=== PATIENT | female | born 1995 | race Caucasian/White ===

== ENCOUNTER → 2016-11-09 | Outpatient (REF) | payer OTHER | END | disposition home or self-care (01) | LOC: M LAB REF 10:12 | PROVIDERS: ATTEND Physician Assistant | DX: J06.9 Acute upper respiratory infection, unspecified (principal) ==

== ENCOUNTER 2017-09-23 18:07 | Emergency (ER) | payer OTHER ==
[~2017-09-23] VITALS: Ht 147.3 cm; Wt 64.7 kg
[2017-09-23 18:08] VITALS: BP 138/85
[2017-09-23] MEDS ORDERED: CITA20TA4 (18:17)
--- NOTE | 2017-09-24 08:55 | REP ---
REASON: Pain after trauma. COMPARISON: None. FINDINGS: The joint spaces are symmetric and relatively well maintained. There is no evidence of acute fracture or destructive osseous lesion. IMPRESSION: Negative hand. Signed by Arthur Velazquez DO 09/24/2017 08:57 A
== END 2017-09-23 20:08 | disposition home or self-care (01) ==
LOC: M ED 18:07
DX: S60.222A Contusion of left hand, initial encounter (principal); X58.XXXA Exposure to other specified factors, initial encounter; Y92.59 Other trade areas as the place of occurrence of the external cause; Y93.89 Activity, other specified; Y99.0 Civilian activity done for income or pay; F33.9 Major depressive disorder, recurrent, unspecified; Z79.899 Other long term (current) drug therapy

== ENCOUNTER → 2019-04-12 | Outpatient (REF) | payer OTHER ==
[~2019-04-12] MED LIST: CITA20TA6
== END ==
LOC: M SFHCPLAZ 13:38
PROVIDERS: ATTEND Physician Assistant Medical
DX: J30.2 Other seasonal allergic rhinitis (principal)

== ENCOUNTER → 2019-05-10 | Outpatient (CLI) | payer OTHER ==
[2019-05-15 10:39] LABS: D001-IgE D pteronyssinus 8.38 kU/L (Class IV); G002-IgE Bermuda Grass 7.15 kU/L (Class IV); M001-IgE Penicillium chrysogen < 0.10 kU/L (Class 0); M002 IgE Cladosporium herbaru < 0.10 kU/L (Class 0); M003 IgE Aspergillus fumigatu < 0.10 kU/L (Class 0); M006-IgE Alternaria alternata < 0.10 kU/L (Class 0); T001-IgE Maple/Box Elder 0.13 kU/L (Class 0/I); T003-IgE Common Silver Birch < 0.10 kU/L (Class 0); T006-IgE Cedar, Mountain < 0.10 kU/L (Class 0); T007-IgE Oak, White < 0.10 kU/L (Class 0); T008-IgE Elm, American < 0.10 kU/L (Class 0); T015-IgE Ash, White < 0.10 kU/L (Class 0); T041-IgE Hickory, White < 0.10 kU/L (Class 0); T070-IgE White Mulberry < 0.10 kU/L (Class 0); W001-IgE Ragweed, Short 4.76 kU/L (Class IV); W009-IgE Plantain, English 0.15 kU/L (Class 0/I); W014-IgE Pigweed, Rough < 0.10 kU/L (Class 0); W018-IgE Sheep Sorrel 0.12 kU/L (Class 0/I)
== END ==
LOC: M LAB 10:14
PROVIDERS: ATTEND Physician Assistant Medical
DX: J30.2 Other seasonal allergic rhinitis (principal)

== ENCOUNTER → 2019-07-13 | Outpatient (REF) | payer OTHER ==
[2019-07-13 16:03] LABS: APPEARANCE, URINE HAZY (CLEAR); BACTERIA, URINE AUTO 2+ (NEGATIVE); BILIRUBIN, URINE AUTO NEGATIVE (NEGATIVE); BLOOD, URINE BLOOD 3+ (NEGATIVE); COLOR, URINE YELLOW (YELLOW); GLUCOSE, URINE (UA) AUTO NEGATIVE (NEGATIVE); KETONE, URINE AUTO NEGATIVE (NEGATIVE); LEUKOCYTE ESTERASE, URINE AUTO 3+ (NEGATIVE); NITRITE, URINE AUTO NEGATIVE (NEGATIVE); PROTEIN, URINE AUTO NEGATIVE (NEGATIVE); RBC, URINE AUTO 2 /HPF (0-3); SPECIFIC GRAVITY URINE AUTO 1.002 (1.002-1.035); SQUAMOUS EPITHELIAL CELL UR AU 1 /HPF (0-6); UROBILINOGEN, URINE AUTO 0.2 mg/dL (0.0-2.0); WBC, URINE AUTO 58 /HPF (0-3)
== END ==
LOC: M LAB REF 15:53
PROVIDERS: ATTEND Physician Assistant Medical
DX: N39.0 Urinary tract infection, site not specified (principal)

== ENCOUNTER → 2020-08-18 | Outpatient (REF) | payer OTHER ==
[2020-08-18 16:20] LABS: ALBUMIN 3.7 GM/DL (3.2-5.2); ALT/SGPT 33 U/L (12-78); BILIRUBIN,TOTAL 0.3 MG/DL (0.2-1.0); BLOOD UREA NITROGEN 10 MG/DL (7-18); CALCIUM LEVEL 9.3 MG/DL (8.5-10.1); CARBON DIOXIDE LEVEL 28 MEQ/L (21-32); CHLORIDE LEVEL 104 MEQ/L (98-107); CREATININE FOR GFR 0.83 MG/DL (0.55-1.30); GLOMERULAR FILTRATION RATE > 60.0 (>60); GLUCOSE, FASTING 86 MG/DL (70-100); POTASSIUM SERUM 4.4 MEQ/L (3.5-5.1); SODIUM LEVEL 138 MEQ/L (136-145); TOTAL PROTEIN 7.6 GM/DL (6.4-8.2)
[2020-08-20 16:08] LABS: INSULIN LEVEL 35.3 uIU/mL (2.6-24.9); TESTOSTERONE FREE (DIRECT) 1.3 pg/mL (0.0-4.2)
== END ==
LOC: M SFHCPLAZ 12:10
PROVIDERS: ATTEND Physician Assistant Medical
DX: N91.2 Amenorrhea, unspecified (principal); E66.9 Obesity, unspecified; E28.2 Polycystic ovarian syndrome

== ENCOUNTER → 2020-09-18 | Outpatient (REF) | payer OTHER | LOC: M LAB REF 12:19 | PROVIDERS: ATTEND Advanced Practice Midwife | DX: Z32.01 Encounter for pregnancy test, result positive (principal) ==

== ENCOUNTER → 2020-09-21 | Outpatient (CLI) | payer OTHER ==
[2020-09-21 12:13] LABS: HEMATOCRIT 38.8 % (36.0-47.0); HEMOGLOBIN 12.6 g/dl (12.0-15.5); MEAN CORPUSCULAR HEMOGLOBIN 28.1 pg (27.0-33.0); MEAN CORPUSCULAR HGB CONC 32.5 g/dl (32.0-36.5); MEAN CORPUSCULAR VOLUME 86.6 fl (80.0-96.0); PLATELET COUNT, AUTOMATED 348 10^3/uL (150-450); RED BLOOD COUNT 4.48 10^6/uL (4.00-5.40)
[2020-09-21 13:21] LABS: HCG, SERUM QUANTITATIVE 68394 MIU/ML; HEPATITIS B SURFACE ANTIGEN NEGATIVE (NEGATIVE); HEPATITIS C VIRUS ABY INDEX < 0.0 INDEX (<0.8); HIV 1&2 SCREEN CENTAUR NEGATIVE (NEGATIVE)
== END ==
LOC: M WUC 09:29
PROVIDERS: ATTEND Advanced Practice Midwife
DX: Z32.01 Encounter for pregnancy test, result positive (principal)

== ENCOUNTER → 2020-10-22 | Outpatient (REF) | payer OTHER | LOC: M LAB REF 12:11 | PROVIDERS: ATTEND Advanced Practice Midwife | DX: Z34.81 Encounter for supervision of other normal pregnancy, first trimester (principal) ==

== ENCOUNTER → 2020-11-30 | Outpatient (REF) | payer OTHER | LOC: M LAB REF 11:56 | PROVIDERS: ATTEND Advanced Practice Midwife | DX: Z34.81 Encounter for supervision of other normal pregnancy, first trimester (principal) ==

== ENCOUNTER → 2021-02-08 | Outpatient (CLI) | payer OTHER ==
[2021-02-08 13:16] LABS: HEMATOCRIT 34.8 % (36.0-47.0); HEMOGLOBIN 11.1 g/dl (12.0-15.5); MEAN CORPUSCULAR HEMOGLOBIN 28.4 pg (27.0-33.0); MEAN CORPUSCULAR HGB CONC 31.9 g/dl (32.0-36.5); PLATELET COUNT, AUTOMATED 294 10^3/uL (150-450); RED BLOOD COUNT 3.91 10^6/uL (4.00-5.40); WHITE BLOOD COUNT 11.3 10^3/uL (4.0-10.0)
== END ==
LOC: M WUC 09:07
PROVIDERS: ATTEND Advanced Practice Midwife
DX: Z36.89 Encounter for other specified antenatal screening (principal); Z34.82 Encounter for supervision of other normal pregnancy, second trimester

== ENCOUNTER → 2021-02-12 | Outpatient (CLI) | payer OTHER | LOC: M LAB 08:32 | PROVIDERS: ATTEND Advanced Practice Midwife | DX: R73.02 Impaired glucose tolerance (oral) (principal) ==

== ENCOUNTER → 2021-02-25 | Outpatient (REF) | payer OTHER | LOC: M LAB REF 12:33 | PROVIDERS: ATTEND Advanced Practice Midwife | DX: N76.0 Acute vaginitis (principal) ==

== ENCOUNTER → 2021-02-25 | Outpatient (REF) | payer OTHER ==
[~2021-02-25] MED LIST changes: +PRENTAB9 PO
== END ==
LOC: M LAB REF 12:20
PROVIDERS: ATTEND Advanced Practice Midwife
DX: Z34.83 Encounter for supervision of other normal pregnancy, third trimester (principal)

== ENCOUNTER → 2021-03-01 | Outpatient (REF) | payer OTHER ==
[~2021-03-01] MED LIST changes: -PRENTAB9 PO
[2021-03-01 12:58] LABS: ALT/SGPT 21 U/L (12-78); BILIRUBIN,TOTAL 0.2 MG/DL (0.2-1.0); CREATININE FOR GFR 0.47 MG/DL (0.55-1.30); GLOMERULAR FILTRATION RATE > 60.0 (>60); LDH LACTATE DEHYDROGENASE 185 U/L (84-246); URIC ACID 3.1 MG/DL (2.6-6.0)
== END ==
LOC: M LAB REF 12:07
PROVIDERS: ATTEND Advanced Practice Midwife
DX: Z34.83 Encounter for supervision of other normal pregnancy, third trimester (principal)

== ENCOUNTER → 2021-03-02 | Outpatient (REF) | payer OTHER ==
[2021-03-02 13:55] LABS: TOTAL PROTEIN 24 HOUR URINE 596.7 MG/24HR (50-150); URINE TOTAL PROTEIN 23.4 MG/DL (0-12)
== END ==
LOC: M LAB REF 12:44
PROVIDERS: ATTEND Advanced Practice Midwife
DX: Z34.83 Encounter for supervision of other normal pregnancy, third trimester (principal)

== ENCOUNTER → 2021-03-09 | Outpatient (REF) | payer OTHER ==
[2021-03-09 18:06] LABS: CREATININE,RANDOM URINE 86.1 MG/DL; TOTAL PROTEIN,RANDOM URINE 25.5 MG/DL (0.0-12.0)
[2021-03-09 18:36] LABS: ALT/SGPT 20 U/L (12-78); BILIRUBIN,TOTAL 0.2 MG/DL (0.2-1.0); CREATININE FOR GFR 0.55 MG/DL (0.55-1.30); GLOMERULAR FILTRATION RATE > 60.0 (>60); LDH LACTATE DEHYDROGENASE 195 U/L (84-246); URIC ACID 3.2 MG/DL (2.6-6.0)
== END ==
LOC: M LAB REF 16:21
PROVIDERS: ATTEND Obstetrics & Gynecology
DX: Z34.83 Encounter for supervision of other normal pregnancy, third trimester (principal)

== ENCOUNTER 2021-03-13 13:24 | Outpatient (CLI) | payer OTHER ==
[~2021-03-13] VITALS: Ht 149.9 cm; Wt 104.9 kg
[2021-03-13] VITALS (9 sets, daily range): BP systolic 120–149; BP diastolic 57–74
[2021-03-13] MEDS ORDERED: PRENTAB9 PO (14:02)
[2021-03-13 15:17] LABS: HEMATOCRIT 33.8 % (36.0-47.0); HEMOGLOBIN 10.9 g/dl (12.0-15.5); MEAN CORPUSCULAR HEMOGLOBIN 27.4 pg (27.0-33.0); MEAN CORPUSCULAR HGB CONC 32.2 g/dl (32.0-36.5); MEAN CORPUSCULAR VOLUME 84.9 fl (80.0-96.0); PLATELET COUNT, AUTOMATED 327 10^3/uL (150-450); RED BLOOD COUNT 3.98 10^6/uL (4.00-5.40)
[2021-03-13 15:31] LABS: TOTAL PROTEIN,RANDOM URINE 35.2 MG/DL (0.0-12.0)
[2021-03-13 15:45] LABS: ALBUMIN 2.5 GM/DL (3.2-5.2); ALT/SGPT 21 U/L (12-78); BILIRUBIN,TOTAL 0.2 MG/DL (0.2-1.0); BLOOD UREA NITROGEN 6 MG/DL (7-18); CALCIUM LEVEL 8.3 MG/DL (8.5-10.1); CARBON DIOXIDE LEVEL 22 MEQ/L (21-32); CHLORIDE LEVEL 109 MEQ/L (98-107); CREATININE FOR GFR 0.56 MG/DL (0.55-1.30); GLOMERULAR FILTRATION RATE > 60.0 (>60); GLUCOSE, FASTING 97 MG/DL (70-100); LDH LACTATE DEHYDROGENASE 205 U/L (84-246); POTASSIUM SERUM 3.9 MEQ/L (3.5-5.1); SODIUM LEVEL 140 MEQ/L (136-145); TOTAL PROTEIN 6.3 GM/DL (6.4-8.2); URIC ACID 3.2 MG/DL (2.6-6.0)
--- NOTE | 2021-03-13 16:12 | IPNPDOC ---
Obstetrical Progress Note Date of Service March 13, 2021 Subjective 25-year-old G3, P0020, at 32+3 weeks gestation. Presents today with concerns for preeclampsia. Had a headache this morning, which resolves spontaneously without medications. At times she feels like her heart is racing, but denies chest pain. States her blood pressures were elevated at home. She has been seen by Dr. Reeves practice during this and recently taken out of work and put on modified bed rest due to her diagnosis of gestational hypertension. Currently denies headache, visual changes, shortness of breath, chest pain or right upper quadrant pain. She denies vaginal bleeding, loss of fluid or uterine contractions. O: See below. Predominantly normotensive (one mildly elevated blood pressure during her evaluation). Mild tachycardia and 90-110 bpm. , oxygen saturation on room air 97% to 100%. Afebrile Heart regular rate and rhythm, no murmurs, gallops, rubs Lungs clear to auscultation bilaterally. No wheezes, crackles or rhonchi Extremities mildly edematous. No pitting edema, 2+ DTR EFM: Category 1 reactive, moderate variability, normal baseline. No decelerations [place]: No contraction pattern detected Labs: See below A/P: 25-year-old G3, P0 at 32+3 weeks gestation, gestational hypertension, currently stable. Patient declined Tylenol for headache. Advised to use Tylenol 1000 mg by mouth for headache and return to the hospital or office if unresolved. Preeclampsia precautions reviewed. . She has close clinical follow-up already scheduled with Dr. Reeves this week. Laboratory Tests 03/13/21 15:06 Vital Signs Date Time Temp Pulse Resp B/P (MAP) Pulse Ox O2 Delivery O2 Flow Rate FiO2 03/13/21 15:44 107 18 120/57 (78) 03/13/21 15:29 107 18 125/61 (82) 03/13/21 15:14 104 18 126/60 (82) 03/13/21 14:59 125 18 127/60 (82) 03/13/21 14:44 108 18 131/59 (83) 03/13/21 14:29 114 18 134/63 (86) 03/13/21 14:14 116 18 130/71 (90) 03/13/21 13:59 115 18 137/74 (95) 03/13/21 13:42 99.2 133 18 149/73 (98) Laboratory Tests 03/13/21 14:54: Urine Random Creatinine 136.0, Urine Random Total Protein 35.2H 03/13/21 15:06: White Blood Count 11.0H, Red Blood Count 3.98L, Hemoglobin 10.9L, Hematocrit 33.8L, Mean Corpuscular Volume 84.9, Mean Corpuscular Hemoglobin 27.4, Mean Corpuscular Hemoglobin Concent 32.2, Red Cell Distribution Width 14.5, Platelet Count 327, Nucleated Red Blood Cells % (auto) 0.0, Sodium Level 140, Potassium Level 3.9, Chloride Level 109H, Carbon Dioxide Level 22, Anion Gap 9, Blood Urea Nitrogen 6L, Creatinine 0.56, Glomerular Filtration Rate > 60.0, Fasting Glucose 97, Uric Acid 3.2, Calcium Level 8.3L, Total Bilirubin 0.2, Aspartate Amino Transf (AST/SGOT) 20, Alanine Aminotransferase (ALT/SGPT) 21, Alkaline Phosphatase 200H, Lactate Dehydrogenase 205, Total Protein 6.3L, Albumin 2.5L, Albumin/Globulin Ratio 0.7L Objective Vital Signs Date Time Temp Pulse Resp B/P (MAP) Pulse Ox O2 Delivery O2 Flow Rate FiO2 03/13/21 15:44 107 18 120/57 (78) 03/13/21 13:42 99.2 YOANA ERVIN DO March 13, 2021 16:12
== END 2021-03-13 16:30 | disposition home or self-care (01) ==
LOC: M LDO 13:24
PROVIDERS: ATTEND Obstetrics & Gynecology
DX: O13.3 Gestational [pregnancy-induced] hypertension without significant proteinuria, third trimester (principal); Z3A.32 32 weeks gestation of pregnancy
CPT/HCPCS: 36415; 59025; 80053; 82570; 83615; 84156; 84550; 85027; G0378; G0463

== ENCOUNTER → 2021-03-19 | Outpatient (REF) | payer OTHER ==
[~2021-03-19] MED LIST changes: +PRENTAB9 PO
[2021-03-19 18:52] LABS: URINE TOTAL PROTEIN 17.3 MG/DL (0-12)
== END ==
LOC: M LAB REF 17:25
PROVIDERS: ATTEND Advanced Practice Midwife
DX: O99.891 Other specified diseases and conditions complicating pregnancy (principal); Z3A.00 Weeks of gestation of pregnancy not specified

== ENCOUNTER → 2021-03-23 | Outpatient (REF) | payer OTHER ==
[2021-03-23 11:55] LABS: HEMOGLOBIN 11.2 g/dl (12.0-15.5); MEAN CORPUSCULAR HEMOGLOBIN 26.2 pg (27.0-33.0); MEAN CORPUSCULAR HGB CONC 31.1 g/dl (32.0-36.5); MEAN CORPUSCULAR VOLUME 84.1 fl (80.0-96.0); PLATELET COUNT, AUTOMATED 281 10^3/uL (150-450); RED BLOOD COUNT 4.28 10^6/uL (4.00-5.40)
[2021-03-23 12:44] LABS: ALT/SGPT 18 U/L (12-78); BILIRUBIN,TOTAL 0.3 MG/DL (0.2-1.0); CREATININE FOR GFR 0.51 MG/DL (0.55-1.30); GLOMERULAR FILTRATION RATE > 60.0 (>60); LDH LACTATE DEHYDROGENASE 198 U/L (84-246); URIC ACID 3.8 MG/DL (2.6-6.0)
== END ==
LOC: M LAB REF 11:15
PROVIDERS: ATTEND Advanced Practice Midwife
DX: O99.891 Other specified diseases and conditions complicating pregnancy (principal)

== ENCOUNTER → 2021-03-30 | Outpatient (REF) | payer OTHER | LOC: M LAB REF 16:26 | PROVIDERS: ATTEND Obstetrics & Gynecology | DX: Z34.83 Encounter for supervision of other normal pregnancy, third trimester (principal) ==

== ENCOUNTER 2021-04-05 14:42 | Inpatient (IN) | payer OTHER ==
[2021-04-05] VITALS (11 sets, daily range): BP systolic 131–155; BP diastolic 59–91
[~2021-04-05] VITALS: Ht 147.3 cm; Wt 240.0 kg
[2021-04-05] MEDS ORDERED: HOME MED LIST COMPLETE! XX SCH (15:05)
[2021-04-05 16:27] LABS: HEMOGLOBIN 10.3 g/dl (12.0-15.5); MEAN CORPUSCULAR HEMOGLOBIN 25.8 pg (27.0-33.0); MEAN CORPUSCULAR HGB CONC 31.2 g/dl (32.0-36.5); MEAN CORPUSCULAR VOLUME 82.5 fl (80.0-96.0); PLATELET COUNT, AUTOMATED 280 10^3/uL (150-450); WHITE BLOOD COUNT 10.5 10^3/uL (4.0-10.0)
[2021-04-05] MEDS ORDERED: MONT10TA10 PO (16:41)
[2021-04-05] MEDS ORDERED: ACET325C5 PO (16:41)
[2021-04-05] MEDS ORDERED: CALC500C15 PO (16:41)
[2021-04-05] MEDS ORDERED: SERT-141 PO (16:41)
[2021-04-05 16:56] LABS: ALT/SGPT 16 U/L (12-78); BILIRUBIN,TOTAL 0.2 MG/DL (0.2-1.0); CREATININE FOR GFR 0.58 MG/DL (0.55-1.30); GLOMERULAR FILTRATION RATE > 60.0 (>60); LDH LACTATE DEHYDROGENASE 230 U/L (84-246); URIC ACID 4.1 MG/DL (2.6-6.0)
[2021-04-05 17:11] LABS: TOTAL PROTEIN,RANDOM URINE 102.7 MG/DL (0.0-12.0)
[2021-04-05] MEDS ORDERED: BETAMETHASONE SOLUSPAN 6MG/ML 5ML VIAL (J0702 PER 3MG) IM SCH (18:00)
--- NOTE | 2021-04-05 18:01 | HPEPDOC ---
Obstetrical History & Physical General Date of Admission 04/05/21 Primary Care Physician: VEENA LARRY CNM History of Present Illness Rosi is a 25-year-old female who is a at 36.2 weeks gestation with an BRANDON of 05/01/21 based off of her LMP and consistent with her first trimester ultrasound. She initiated care in her first trimester with [facility]. Her has been complicated by preeclampsia. She presents to L&D after being sent over from [facility] due to preeclampsia and boarderline oligohydramnios. She denies any preeclamptic symptoms. She reports active movement, occasional contractions. She denies leaking of fluid or vaginal pain. She does report her feet are swollen and causing her discomfort. Chief Complaint: Pre-eclamsia Information Provided By: Patient Age: 25 : 3 Term: 0 Pre-term: 0 Abortions: 2 Livin Care Care: Good Care Dating Final EDC: May 03, 2021 Final EDC by: LMP EGA at Admission: 36.2 Antepartum Course Diagnos(e)s Preeclampsia Height (inches): 58 Admission Weight (lbs.): 240 Past Medical History Past Obstetrical History : Past Obstetrical History: Primgravida ACCOUNT MANAGER B2B History: Spontaneous , Theraputic Past Medical History Medical History Depression-taking Zoloft 100 mg Surgical History: Denies/None Family History Significant Family History: No pertinent family hx Social History Marital Status: Family situation: Spouse/partner home Psychosocial History: Depression * Smoker: non-smoker Alcohol: Denies Drugs: denies Abuse Violence Screening Have you been hit/kicked/slapp: No Have you been sexually assault: No Allergies Coded Allergies: No Known Allergies (Unverified , 09/23/17) Medications Scheduled No.137/Iron/Folic Acd ( Vitamin Tablet) 1 Each Tablet, 1 TAB PO DAILY Miscellaneous Medications Acetaminophen (Tylenol) 325 Mg Capsule, 325 MG PO Calcium Carbonate (Antacid) 200 Mg Tab.chew, 500 MG PO Montelukast Sodium (Montelukast Sodium) 10 Mg Tablet, 20 MG PO Sertraline Hcl (Sertraline HCl) 50 Mg Tablet, 100 MG PO Physical Examination Physical Examination GENERAL: Alert and oriented times three. ABDOMEN: Gravid and non-tender to touch. FETUS: Category I FHR tracing. HEART RATE: Regular rate and rhythm. LUNGS: Clear to auscultation (CTA) bilaterally. No use of accessory muscles. EXTREMITIES: 2+ pitting edema up to knees. No clonus. Deep tendon reflexes (DTRs) + 2. Vital Signs/I&O Vital Signs Date Time Temp Pulse Resp B/P (MAP) Pulse Ox O2 Delivery O2 Flow Rate FiO2 04/05/21 17:13 102 18 136/86 (103) 04/05/21 15:11 98.7 Laboratory Data 24H LABS Laboratory Tests 2 04/05/21 16:12: Nucleated Red Blood Cells % (auto) 0.2H, Glomerular Filtration Rate > 60.0, Uric Acid 4.1, Total Bilirubin 0.2, Aspartate Amino Transf (AST/SGOT) 15, Alanine Aminotransferase (ALT/SGPT) 16, Lactate Dehydrogenase 230 04/05/21 16:19: Urine Random Creatinine 187.0, Urine Random Total Protein 102.7H Item Value Date Time Urine Random Creatinine 187.0 MG/DL 04/05/21 1619 Urine Random Total Protein 102.7 MG/DL H 04/05/21 1619 CBC/BMP Laboratory Tests 04/05/21 16:12 Urine Culture: No Growth Pertinent Laboratoy Data Blood Type: A+ RBC Antibody Screen: Negative HIV: Negative Hepatitis B: Negative Hepatitis C: Negative Rapid Plasma Reagin: Nonreactive Rubella: Immune Chlamydia/Gonorrhea: Negative Group B Streptococcus: Negative Glucose Tolerance Test: 163 Diag/Inter Therapy 3 hour GTT: 94, 178, 99, 67 Anatomy Ultrasound Ultrasound Date: Mar 23, 2021 Placenta Location: Anterior Normal Anatomy: Yes Placenta Previa: No Estimated Weight (grams): 2470 Steroid Therapy Steroid Therapy: Yes Date #1: Apr 05, 2021 Assessment Heart Rate (FHR): 130 Variability: Moderate Accelerations: Positive Decelerations: None Tocometer Contractions: Yes Frequency: irregular Multi-drug resistant Organism: No history of MDRO Assessment/Plan Assessment IUP at 36.2 weeks gestation preeclampsia boarderline oligohydramnios Category I FHR tracing Plan Observation now and likely admission to L&D for preeclampsia. Reviewed findings with Dr. Victor. Plan collaborated. Patient continues to have mildly elevated BPs but no severe range and denies symptoms of preeclampsia. Will start Betamethasone for lung maturity OOB ad pantera Diet: regular. Group B Streptococcus (GBS) negative. Saline lock to be started and labs to be sent to hold. Repeat labs in the morning and BPP to be done in the morning. Education done on induction process. VEENA LARRY CNM Apr 05, 2021 18:01
[2021-04-05] MEDS: ACETAMINOPHEN 500 MG TAB PO PRN (19:16)
[2021-04-05] MEDS ORDERED: SERTRALINE 100 MG TAB PO SCH (21:00)
[2021-04-05] MEDS ORDERED: MONTELUKAST 10 MG TAB PO SCH (21:00)
[2021-04-06] VITALS (21 sets, daily range): BP systolic 122–156; BP diastolic 60–92
[2021-04-06] MEDS: ACETAMINOPHEN 500 MG TAB PO PRN (06:34)
[2021-04-06 07:17] LABS: HEMATOCRIT 32.9 % (36.0-47.0); HEMOGLOBIN 10.2 g/dl (12.0-15.5); MEAN CORPUSCULAR HEMOGLOBIN 25.9 pg (27.0-33.0); MEAN CORPUSCULAR VOLUME 83.5 fl (80.0-96.0); PLATELET COUNT, AUTOMATED 300 10^3/uL (150-450); RED BLOOD COUNT 3.94 10^6/uL (4.00-5.40); WHITE BLOOD COUNT 14.4 10^3/uL (4.0-10.0)
[2021-04-06 07:36] LABS: ALT/SGPT 15 U/L (12-78); BILIRUBIN,TOTAL 0.2 MG/DL (0.2-1.0); CREATININE FOR GFR 0.73 MG/DL (0.55-1.30); GLOMERULAR FILTRATION RATE > 60.0 (>60); LDH LACTATE DEHYDROGENASE 223 U/L (84-246); URIC ACID 4.5 MG/DL (2.6-6.0)
[2021-04-06] MEDS ORDERED: BETAMETHASONE SOLUSPAN 6MG/ML 5ML VIAL (J0702 PER 3MG) IM ONE (08:05)
[2021-04-06] MEDS: miSOPROStol 50MCG 1/2 TABLET PO SCH ×2 (09:11→13:10)
[2021-04-06] MEDS ORDERED: LR 1,000 ML IV SCH (13:05)
[2021-04-06] MEDS ORDERED: BICITRA 30ML SOLN UDC PO ONE (18:30)
[2021-04-06] MEDS ORDERED: ceFAZolin SOD 2 GM in IV 1 EA IV ONE (18:30)
[2021-04-06] MEDS ORDERED: dexameTHASONE 4 MG/ML 1ML VIAL (J1100 PER 1MG) As Ordered ONE (19:28)
[2021-04-06] MEDS ORDERED: MORPHINE PRES-FREE INJ 10 MG/10 ML VIAL (J2274) As Ordered ONE (19:28)
[2021-04-06] MEDS ORDERED: PHENYLephrine 500MCG 5ML (100MCG/ML) SYRINGE As Ordered ONE (19:29)
[2021-04-06] MEDS ORDERED: KETOROLAC 60MG 2ML VIAL As Ordered ONE (19:29)
[2021-04-06] MEDS ORDERED: ONDANSETRON 4MG/2ML VIAL As Ordered ONE (19:29)
[2021-04-06] MEDS ORDERED: ePHEDrine SULFATE 25 MG/5 ML(5MG/ML) SYRINGE As Ordered ONE (19:29)
[2021-04-06] MEDS ORDERED: OXYTOCIN 30 UNITS IN 0.9% NaCl 500ML IV BAG (J2590) As Ordered ONE (19:30)
[2021-04-06] MEDS ORDERED: OXYTOCIN INJ 10 UNITS/ML VIAL (J2590) As Ordered ONE (19:31)
[2021-04-06] MEDS ORDERED: RHOGAM 300 MCG (1500 IU) INJ (J2790) IM SCH (19:45)
[2021-04-06] MEDS ORDERED: MOM 30ML SUSPENSION UDC PO PRN (19:45)
[2021-04-06] MEDS ORDERED: PERCOCET 5MG/325MG TAB PO PRN (19:45)
[2021-04-06] MEDS ORDERED: OXYTOCIN DRIP 30 UNITS in IV 1 EA IV SCH (19:45)
[2021-04-06] MEDS ORDERED: SIMETHICONE 80MG CHEW TAB PO PRN (19:45)
[2021-04-06] MEDS ORDERED: MEASLES,MUMPS,RUBELLA VACCINE INJ (MMR-II) (90707) SC SCH (19:45)
[2021-04-06] MEDS ORDERED: NALBUPHINE HCL 10 MG/ML AMP (J2300) IV PRN (19:49)
[2021-04-06] MEDS ORDERED: diphenhydrAMINE 50MG/ML VIAL (J1200) IV PRN (19:49)
[2021-04-06] MEDS ORDERED: METOCLOPRAMIDE INJ 10MG/2ML VIAL (J2765 PER 1) IV PRN (19:49)
[2021-04-06] MEDS ORDERED: ONDANSETRON 4MG/2ML VIAL IV PRN ×2 (19:49→21:00)
[2021-04-06] MEDS ORDERED: NALOXONE INJ 0.4MG/1ML VIAL (J2310 PER 1MG) IV PRN ×2 (19:49)
[2021-04-06] MEDS ORDERED: METOCLOPRAMIDE INJ 10MG/2ML VIAL (J2765 PER 1) As Ordered ONE (20:13)
[2021-04-06 20:32] LABS: CORD GAS ABE V -3.6; CORD GAS HCO3 V 22.9 MEQ/L; CORD GAS O2 SAT V 53.6 %; CORD GAS PCO2 V 46.6 mmHg; CORD GAS PH V 7.31 UNITS; CORD GAS PO2 V 21.7 mmHg; CORD GAS SBC V 20.5 MEQ/L; CORD GAS TCO2 V 24.4 MEQ/L
[2021-04-06 20:34] LABS: CORD GAS ABE A -2.6; CORD GAS HCO3 A 25.4 MEQ/L; CORD GAS O2 SAT A 35.6 %; CORD GAS PCO2 A 56.7 mmHg; CORD GAS PH A 7.269 UNITS; CORD GAS PO2 A 17.2 mmHg; CORD GAS SBC A 20.8 MEQ/L; CORD GAS TCO2 A 27.1 MEQ/L
[2021-04-06] MEDS: DOCUSATE SODIUM 100MG CAPSULE PO SCH (21:00)
[2021-04-06] MEDS ORDERED: KETOROLAC 30 MG/ML 1ML VIAL IV PRN (21:00)
[2021-04-06] MEDS ORDERED: fentaNYL 100 MCG/2 ML INJECTION (J3010) As Ordered ONE (21:33)
[2021-04-06] MEDS: fentaNYL 100 MCG/2 ML INJECTION (J3010) IV PRN ×2 (21:36→21:56)
[2021-04-07 03:15] VITALS: BP 126/68
[2021-04-07] MEDS: IBUPROFEN 800 MG TAB PO SCH ×3 (03:18→20:16)
[2021-04-07] MEDS: PERCOCET 5MG/325MG TAB PO PRN ×2 (06:40→18:15)
[2021-04-07 06:42] LABS: HEMATOCRIT 29.7 % (36.0-47.0); HEMOGLOBIN 9.1 g/dl (12.0-15.5); MEAN CORPUSCULAR HGB CONC 30.6 g/dl (32.0-36.5); MEAN CORPUSCULAR VOLUME 84.9 fl (80.0-96.0); PLATELET COUNT, AUTOMATED 349 10^3/uL (150-450)
--- NOTE | 2021-04-07 07:03 | IPNPDOC ---
Progress Note Date of Service: Apr 07, 2021 Day#: 1 Progress Note POD 1 SUBJECT: Rosi is a 25yo [id number] s/p uncomplicated PLTCS for arrest of dilation in the process of IOL for pre-eclampsia withOUT severe features, doing well overall /post-op day # 1. She has not yet ambulated, copeland catheter still in place. She is tolerating regular diet without n/v. Breast feeding without issue. Reports lochia is like a normal period. No CP/SOB/HAMEED/vision changes/RUQ pain. OBJECTIVE: VITAL SIGNS: Normotensive, afebrile. Alert and oriented times three. Abdomen: Fundus firm at U-2. Soft, appropriately tender to palpation. Pfannenstiel incision covered by dry clean dressing. Extremities: no pain with palpation of calves Labs: pre-op H/H 10.2/32.9 post-op H/H 9.1/29.7 ASSESSMENT: Rosi is a 25yo [id number] s/p uncomplicated PLTCS for arrest of dilation in the process of IOL for pre-eclampsia withOUT severe features, doing well overall /post-op day # 1. Normotensive, afebrile, hemodynamically stable with no evidence of infection. No s/sx of worsening pre-E. PLAN: 1. Routine care 2. Remove copeland catheter this morning with due to void in 4hr. 3. toradol and percocet prn pain. Colace for bowel regimen. 4. Encourage breast feeding and ambulation and use of IS 5. Regular diet Radha Oakes MD VS, I&O, 24H, [facility] Vital Signs/I&O Vital Signs Date Time Temp Pulse Resp B/P (MAP) Pulse Ox O2 Delivery O2 Flow Rate FiO2 04/07/21 06:40 18 Room Air 04/07/21 03:15 97.8 89 126/68 (87) 96 I&O- Last 24 Hours up to 6 AM 04/07/21 05:59 Intake Total 200 ml Output Total 1075 ml Balance -875 ml Laboratory Data 24H LABS Laboratory Tests 2 04/06/21 20:20: Cord Arterial Blood pH 7.269, Cord Arterial Blood PCO2 56.7, Cord Arterial Blood PO2 17.2, Cord Arterial Blood HCO3 25.4, Cord Arterial Blood Total CO2 27.1, Cord Arterial Blood Base Excess -2.6, Cord Arterial Base Excess (Standard 20.8, Cord Arterial Bld Oxygen Saturation 35.6, Cord Venous Blood pH 7.310, Cord Venous Blood PCO2 46.6, Cord Venous Blood PO2 21.7, Cord Venous Blood HCO3 22.9, Cord Venous Blood Total CO2 24.4, Cord Venous Base Excess (Actual) -3.6, Cord Venous Base Excess (Standard) 20.5, Cord Venous Blood Oxygen Saturation 53.6 04/07/21 06:27: Nucleated Red Blood Cells % (auto) 0.4H CBC/BMP Laboratory Tests 04/07/21 06:27 Radha Kong MD Apr 07, 2021 07:03
[2021-04-07 07:06] LABS: ALT/SGPT 15 U/L (12-78); BILIRUBIN,TOTAL 0.2 MG/DL (0.2-1.0); GLOMERULAR FILTRATION RATE > 60.0 (>60); LDH LACTATE DEHYDROGENASE 217 U/L (84-246); URIC ACID 4.9 MG/DL (2.6-6.0)
[2021-04-07] MEDS: PRENATAL VITAMINS CHEWABLE TABLET PO SCH (08:39)
[2021-04-07] MEDS: DOCUSATE SODIUM 100MG CAPSULE PO SCH ×2 (08:39→20:15)
[2021-04-07] MEDS ORDERED: BOOSTRIX/ADACEL VACCINE (DIPHTH/PERTUSS/ACELL/TETANUS) 0.5ML SYR IM ONE (09:00)
[2021-04-07 09:55] VITALS: BP 131/65
[2021-04-07 14:00] VITALS: BP 124/66
[2021-04-07 18:00] VITALS: BP 139/75
[2021-04-07 22:03] VITALS: BP 153/78
[2021-04-08 02:30] VITALS: BP 146/79
[2021-04-08] MEDS: IBUPROFEN 800 MG TAB PO SCH ×2 (03:31→11:52)
[2021-04-08] MEDS: PERCOCET 5MG/325MG TAB PO PRN ×2 (05:50→14:39)
[2021-04-08 06:23] VITALS: BP 139/83
--- NOTE | 2021-04-08 06:52 | DSES ---
DISCHARGE SUMMARY DATE OF ADMISSION: 04/06/2021 DATE OF DISCHARGE: 04/08/2021 DISCHARGE DIAGNOSIS: 1. Primary section postop day #2, stable condition. 2. Preeclampsia, resolving. SURGEON: TIMOTHY CORONEL DO OFFC SPEC: SETH MORALES MD HISTORY: Rosi is a 25-year-old 3 para 0-1-2-1 now who did undergo induction of labor due to preeclampsia an oligohydramnios. She underwent a primary section for arrest of dilation remote from delivery, preeclampsia and oligohydramnios. Her surgery was uncomplicated. Estimated blood loss was 500 ml. Delivered live male infant at 36 weeks and 3 days, 6 pounds, 4 ounces. Apgars were 3, 6 and 8. Her postoperative course has been uncomplicated. She has been out of bed for self-care, blake-care and care. She is tolerating p.o. fluids and a regular diet, voiding without difficulty and passing flatus. Her pain has been well managed with p.o. pain medications. She denies headache, dizziness and heart palpitations. She does request discharge home today with her baby. OBJECTIVE: Temperature is 97.4, pulse is 92, respirations 16, BP is 139/83. She is alert and oriented x3. Her skin is pink, warm and dry. Her breasts are soft and nontender. Nipples are intact. Abdomen: Fundus firm at umbilicus. Incision dressing removed today, it is well-approximated. Steri-Strips are in place. There is no drainage, no redness and no edema. Perineum is intact with lochia rubra scant. Bilateral lower extremities: +3 pitting edema. Preoperative CBC on 04/05/2021: Hemoglobin 10.3, hematocrit 33. Postoperative CBC on 04/07: Hemoglobin 9.1, hematocrit 29.7. PLAN: Discharge the patient home today. She is to follow-up at [facility] for a two week incision check and an eight week visit. Prescriptions for pain medications have been e-prescribed by Dr. Timothy Coronel. I did review discharge instructions and provided written information that included breast care, incision care, blake-care, pelvic rest, activity and lifting restrictions, danger signs to report as well as access to her care provider. She and her partner's questions have been answered and desire discharge home.
[2021-04-08] MEDS: PRENATAL VITAMINS CHEWABLE TABLET PO SCH (08:54)
[2021-04-08] MEDS: DOCUSATE SODIUM 100MG CAPSULE PO SCH (08:54)
[2021-04-08 10:00] VITALS: BP 171/85
[2021-04-08 14:00] VITALS: BP 141/88
[2021-04-08 14:39] VITALS: BP 141/88
--- NOTE | 2021-04-10 12:59 | IPN ---
PROGRESS NOTE DATE: 04/07/2021 SUBJECTIVE: This patient requested circumcision of their male infant. After discussing risks and benefits of circumcision, the medical and nonmedical indications, the penile block and aftercare, expressed understanding of penile block, aftercare and bleeding, signed the consent form. All questions were answered, 20 minute discussion. We await clearance by the environmental field team member.
--- NOTE | 2021-05-19 09:46 | RO ---
OPERATIVE NOTE DATE OF OPERATION: 04/06/2021 INDICATIONS: This is a 25-year-old female who is approximately 36-4/7 weeks gestation, who was admitted with preeclampsia, oligohydramnios. She was found to be remote from delivery. After counseling the decision was made to proceed with primary section. PREOPERATIVE DIAGNOSES: 1. Intrauterine at 36-4/7 weeks gestation. 2. Preeclampsia. 3. Oligohydramnios, remote from delivery. POSTOPERATIVE DIAGNOSES: 1. Intrauterine at 36-4/7 weeks gestation. 2. Preeclampsia. 3. Oligohydramnios, remote from delivery. 4. Nuchal cord x1. PROCEDURE: Primary low transverse section. SURGEON: Timothy Reeves DO MATERIAL CONTROL MANAGER: Dr. Kong ANESTHESIA: Spinal COMPLICATIONS: None. ESTIMATED BLOOD LOSS: 500 mL. FINDINGS: Live male infant in occiput transverse position, nuchal cord x1, Apgars 3, 6 and 8, roughly 6 pounds 4 ounces. DESCRIPTION OF PROCEDURE: After obtaining informed consent the patient was taken to the operating room where spinal anesthesia was found to be adequate. She was prepped and draped in usual sterile fashion in the supine position. At this point Pfannenstiel incision was made, carried down to the fascia, fascia was incised in midline fashion with the help of my teacher assistant Dr. Kong. The incision was carried down to the peritoneum. Peritoneum was incised in midline fashion. Mobius skin retractor was placed. Low transverse uterine incision was made, was delivered in atraumatic fashion. Nuchal cord was reduced, cord doubly clamped and cut and was handed over to the waiting warmer. Cord blood and cord gas were sent. Placenta removed manually. Uterus cleared of all clot and debris. Uterine incision was then repaired in two separate layers of #0 Vicryl sutures. All superficial bleeders coagulated. Peritoneum closed in running fashion using 2-0 Vicryl, fascia closed in two separate segments of #0 Vicryl sutures and skin was reapproximated in subcuticular fashion using 3-0 Vicryl on Larry. Steri-Strips placed. The patient tolerated the procedure well and she was then transferred to the recovery room in stable condition. cc: [facility]
== END 2021-04-08 14:45 | disposition home or self-care (01) | DRG 772 ==
LOC: M LDO 14:42 → M LDI 04-06 05:40 → M OBS 04-06 22:32
PROVIDERS: ADMIT Obstetrics & Gynecology; ATTEND Obstetrics & Gynecology
PROC: 3E0P7GC Introduction of Other Therapeutic Substance into Female Reproductive, Via Natural or Artificial Opening (ICD-10-PCS; 2021-04-06)
PROC: 10D00Z1 Extraction of Products of Conception, Low, Open Approach (ICD-10-PCS; principal; 2021-04-06 19:30)
DX: O14.03 Mild to moderate pre-eclampsia, third trimester (principal); O41.03X0 Oligohydramnios, third trimester, not applicable or unspecified; O62.0 Primary inadequate contractions; Z37.0 Single live birth; Z3A.36 36 weeks gestation of pregnancy; O69.82X0 Labor and delivery complicated by other cord entanglement, without compression, not applicable or unspecified

== ENCOUNTER → 2022-06-02 | Outpatient (CLI) | payer OTHER ==
[~2022-06-02] MED LIST changes: +ACET325C5 PO; +CALC500C15 PO; +MONT10TA97 PO; +SERT-141 PO
[2022-06-02 14:19] LABS: CK-MB VALUE MASS < 1.0 NG/ML (<3.6); CPK CREATINE PHOSPHOKINASE 111 U/L (26-192)
[2022-06-02 14:31] LABS: HEMOGLOBIN A1c 5.1 %
[2022-06-02 14:36] LABS: ALBUMIN 4.2 GM/DL (3.2-5.2); ALT/SGPT 24 U/L (12-78); BILIRUBIN,TOTAL 0.5 MG/DL (0.2-1.0); BLOOD UREA NITROGEN 12 MG/DL (7-18); CALCIUM LEVEL 9.5 MG/DL (8.5-10.1); CARBON DIOXIDE LEVEL 28 MEQ/L (21-32); CHLORIDE LEVEL 104 MEQ/L (98-107); GLOMERULAR FILTRATION RATE > 60.0 (>60); GLUCOSE, FASTING 81 MG/DL (70-100); POTASSIUM SERUM 4.7 MEQ/L (3.5-5.1); SODIUM LEVEL 135 MEQ/L (136-145); TOTAL PROTEIN 7.9 GM/DL (6.4-8.2)
== END ==
LOC: M PLALAB 11:38
PROVIDERS: ATTEND Physician Assistant Medical
DX: R07.9 Chest pain, unspecified (principal)

== ENCOUNTER → 2023-06-15 | Outpatient (REF) | payer OTHER ==
[2023-06-15 13:38] LABS: HEMATOCRIT 41.8 % (36.0-47.0); HEMOGLOBIN 13.8 g/dl (12.0-15.5); MEAN CORPUSCULAR HEMOGLOBIN 29.2 pg (27.0-33.0); MEAN CORPUSCULAR VOLUME 88.6 fl (80.0-96.0); PLATELET COUNT, AUTOMATED 353 10^3/uL (150-450); RED BLOOD COUNT 4.72 10^6/uL (4.00-5.40); WHITE BLOOD COUNT 7.2 10^3/uL (4.0-10.0)
[2023-06-15 14:35] LABS: HIV 1&2 SCREEN NEGATIVE (NEGATIVE)
[2023-06-15 14:43] LABS: HEPATITIS C VIRUS ABY INDEX 0.15 INDEX (<0.8)
[2023-06-15 14:44] LABS: HCG, SERUM QUANTITATIVE 17788.4 MIU/ML (<4.2)
== END ==
LOC: M LAB REF 12:27
PROVIDERS: ATTEND Obstetrics & Gynecology
DX: O36.80X0 Pregnancy with inconclusive fetal viability, not applicable or unspecified (principal); Z32.01 Encounter for pregnancy test, result positive

== ENCOUNTER → 2023-11-10 | Outpatient (CLI) | payer OTHER ==
[2023-11-10 13:11] LABS: HEMATOCRIT 36.5 % (36.0-47.0); HEMOGLOBIN 11.9 g/dl (12.0-15.5); MEAN CORPUSCULAR HEMOGLOBIN 29.9 pg (27.0-33.0); MEAN CORPUSCULAR HGB CONC 32.6 g/dl (32.0-36.5); MEAN CORPUSCULAR VOLUME 91.7 fl (80.0-96.0); PLATELET COUNT, AUTOMATED 266 10^3/uL (150-450); RED BLOOD COUNT 3.98 10^6/uL (4.00-5.40); WHITE BLOOD COUNT 9.3 10^3/uL (4.0-10.0)
== END ==
LOC: M WUC 08:26
PROVIDERS: ATTEND Obstetrics & Gynecology
DX: Z34.82 Encounter for supervision of other normal pregnancy, second trimester (principal)

== ENCOUNTER 2023-12-18 11:32 | Outpatient (CLI) | payer OTHER ==
[~2023-12-18] VITALS: Ht 147.3 cm; Wt 98.2 kg
[2023-12-18 11:55] VITALS: BP 110/75
[2023-12-18] MEDS ORDERED: METF-839 PO (12:04)
[2023-12-18 15:05] LABS: APPEARANCE, URINE CLEAR (CLEAR); BACTERIA, URINE AUTO 1+ (NEGATIVE); BILIRUBIN, URINE AUTO NEGATIVE (NEGATIVE); BLOOD, URINE BLOOD 1+ (NEGATIVE); COLOR, URINE YELLOW (YELLOW); GLUCOSE, URINE (UA) AUTO NEGATIVE (NEGATIVE); KETONE, URINE AUTO NEGATIVE (NEGATIVE); LEUKOCYTE ESTERASE, URINE AUTO NEGATIVE (NEGATIVE); NITRITE, URINE AUTO NEGATIVE (NEGATIVE); PROTEIN, URINE AUTO NEGATIVE (NEGATIVE); RBC, URINE AUTO 9 /HPF (0-3); SPECIFIC GRAVITY URINE AUTO 1.011 (1.002-1.035); SQUAMOUS EPITHELIAL CELL UR AU 2 /HPF (0-6); UROBILINOGEN, URINE AUTO 0.2 mg/dL (0.0-2.0); WBC, URINE AUTO 1 /HPF (0-3)
== END 2023-12-18 14:53 | disposition home or self-care (01) ==
LOC: M LDO 11:32
PROVIDERS: ATTEND Advanced Practice Midwife
DX: O26.893 Other specified pregnancy related conditions, third trimester (principal); N89.8 Other specified noninflammatory disorders of vagina; Z87.59 Personal history of other complications of pregnancy, childbirth and the puerperium; Z3A.32 32 weeks gestation of pregnancy; O34.219 Maternal care for unspecified type scar from previous cesarean delivery
CPT/HCPCS: 59025; 76815; 81001; 87070; 87086; G0463

== ENCOUNTER → 2023-12-26 | Outpatient (REF) | payer OTHER ==
[~2023-12-26] MED LIST changes: +METF-839 PO
== END ==
LOC: M LAB REF 16:54
PROVIDERS: ATTEND Obstetrics & Gynecology
DX: Z34.83 Encounter for supervision of other normal pregnancy, third trimester (principal); R30.0 Dysuria

== ENCOUNTER 2024-01-07 11:54 | Outpatient (CLI) | payer OTHER ==
[2024-01-07] VITALS (19 sets, daily range): BP systolic 121–147; BP diastolic 59–90
[~2024-01-07] VITALS: Ht 147.3 cm; Wt 101.8 kg
[2024-01-07] MEDS ORDERED: ASPI81CH33 PO (12:17)
[2024-01-07 12:48] LABS: HEMATOCRIT 33.7 % (36.0-47.0); HEMOGLOBIN 10.8 g/dl (12.0-15.5); MEAN CORPUSCULAR HEMOGLOBIN 28.1 pg (27.0-33.0); MEAN CORPUSCULAR VOLUME 87.5 fl (80.0-96.0); PLATELET COUNT, AUTOMATED 214 10^3/uL (150-450); RED BLOOD COUNT 3.85 10^6/uL (4.00-5.40); WHITE BLOOD COUNT 7.4 10^3/uL (4.0-10.0)
[2024-01-07 13:04] LABS: TOTAL PROTEIN,RANDOM URINE 97.3 MG/DL (0.0-14.0)
[2024-01-07 13:08] LABS: URIC ACID 5.6 MG/DL (3.1-7.8)
[2024-01-07 13:09] LABS: CREATININE,RANDOM URINE 114.9 MG/DL
[2024-01-07 13:10] LABS: LDH LACTATE DEHYDROGENASE 194 U/L (120-246)
[2024-01-07 13:11] LABS: ALT/SGPT 15 U/L (7.0-40); AST/SGOT 17 U/L (<34); BILIRUBIN,TOTAL 0.3 MG/DL (0.3-1.2); CREATININE FOR GFR 0.67 MG/DL (0.55-1.30); GLOMERULAR FILTRATION RATE > 60.0 (>60)
[2024-01-07] MEDS: ACETAMINOPHEN 500 MG TAB PO ONE (13:16)
[2024-01-07] MEDS: BETAMETHASONE SOLUSPAN 6MG/ML 5ML VIAL IM SCH (14:46)
[2024-01-07] MEDS: LR 1,000 ML IV SCH (18:10)
[2024-01-07] MEDS: ACETAMINOPHEN TAB 650MG DOSE (2X325MG) PO ONE (22:19)
[2024-01-08] VITALS (7 sets, daily range): BP systolic 126–145; BP diastolic 64–80
[2024-01-08 02:42] LABS: HEMATOCRIT 30.1 % (36.0-47.0); HEMOGLOBIN 9.8 g/dl (12.0-15.5); MEAN CORPUSCULAR HEMOGLOBIN 28.2 pg (27.0-33.0); MEAN CORPUSCULAR HGB CONC 32.6 g/dl (32.0-36.5); MEAN CORPUSCULAR VOLUME 86.5 fl (80.0-96.0); PLATELET COUNT, AUTOMATED 202 10^3/uL (150-450); RED BLOOD COUNT 3.48 10^6/uL (4.00-5.40); WHITE BLOOD COUNT 10.7 10^3/uL (4.0-10.0)
[2024-01-08 02:57] LABS: URIC ACID 5.5 MG/DL (3.1-7.8)
[2024-01-08 02:59] LABS: LDH LACTATE DEHYDROGENASE 188 U/L (120-246)
[2024-01-08 03:00] LABS: ALT/SGPT < 9 U/L (7.0-40); AST/SGOT 16 U/L (<34); BILIRUBIN,TOTAL 0.2 MG/DL (0.3-1.2); CREATININE FOR GFR 0.58 MG/DL (0.55-1.30); GLOMERULAR FILTRATION RATE > 60.0 (>60)
[2024-01-08 18:17] LABS: TOTAL PROTEIN 24 HOUR URINE 1283.2 MG/24HR (50-80)
[2024-01-08 18:21] LABS: CREATININE 24 HOUR, URINE 1210.9 MG/24HR (600-1800); CREATININE, URINE 82.1 MG/DL
[2024-01-10] MEDS ORDERED: LORA-1041 PO (08:10)
== END 2024-01-08 07:26 | disposition home or self-care (01) ==
LOC: M LDO 11:54
PROVIDERS: ATTEND Obstetrics & Gynecology
DX: O14.03 Mild to moderate pre-eclampsia, third trimester (principal); Z3A.31 31 weeks gestation of pregnancy; O34.219 Maternal care for unspecified type scar from previous cesarean delivery; Z87.59 Personal history of other complications of pregnancy, childbirth and the puerperium
CPT/HCPCS: 36415; 59025; 76811; 76819; 76820; 81050; 82247; 82570; 83615; 84156; 84450; 84460; 84550; 85027; 87081; 96360; 96361; 96372; G0463; J0702

== ENCOUNTER 2024-01-11 05:19 | Inpatient (IN) | payer OTHER ==
[2024-01-11] VITALS (8 sets, daily range): BP systolic 107–140; BP diastolic 65–93; TEMP 96.9; O2SAT 97–99
[~2024-01-11] VITALS: Ht 147.3 cm; Wt 102.5 kg
[~2024-01-11 05:19] MED LIST changes: +ASPI81CH33 PO; +LORA-1041 PO
[2024-01-11] MEDS: LACTATED RINGER'S 1000 ML IV STA (05:55)
[2024-01-11 06:23] LABS: HEMATOCRIT 32.2 % (36.0-47.0); HEMOGLOBIN 10.4 g/dl (12.0-15.5); MEAN CORPUSCULAR HEMOGLOBIN 28.2 pg (27.0-33.0); MEAN CORPUSCULAR HGB CONC 32.3 g/dl (32.0-36.5); MEAN CORPUSCULAR VOLUME 87.3 fl (80.0-96.0); PLATELET COUNT, AUTOMATED 192 10^3/uL (150-450); RED BLOOD COUNT 3.69 10^6/uL (4.00-5.40)
[2024-01-11 06:45] LABS: URIC ACID 6.3 MG/DL (3.1-7.8)
[2024-01-11 06:47] LABS: LDH LACTATE DEHYDROGENASE 238 U/L (120-246)
[2024-01-11 06:48] LABS: ALT/SGPT 17 U/L (7.0-40); AST/SGOT 17 U/L (<34); BILIRUBIN,TOTAL 0.3 MG/DL (0.3-1.2); CREATININE FOR GFR 0.63 MG/DL (0.55-1.30); GLOMERULAR FILTRATION RATE > 60.0 (>60)
[2024-01-11] MEDS: LR 1,000 ML IV SCH (06:55)
[2024-01-11] MEDS: BICITRA 30ML SOLN UDC PO ONE (07:26)
[2024-01-11] MEDS: ceFAZolin SOD 2 GM in IV 1 EA IV ONE (07:26)
[2024-01-11 08:13] LABS: CORD GAS HCO3 A 26.1 MMOL/L; CORD GAS O2 SAT A 74.7 %; CORD GAS PCO2 A 52.9 mmHg; CORD GAS PH A 7.311 UNITS; CORD GAS PO2 A 32.7 mmHg; CORD GAS SBC A 23.1 MMOL/L; CORD GAS TCO2 A 27.7 MMOL/L
[2024-01-11 08:15] LABS: CORD GAS ABE V -0.2; CORD GAS O2 SAT V 75.7 %; CORD GAS PCO2 V 43.2 mmHg; CORD GAS PH V 7.381 UNITS; CORD GAS SBC V 23.7 MMOL/L; CORD GAS TCO2 V 26.4 MMOL/L
[2024-01-11] MEDS ORDERED: PHENYLephrine 500MCG 5ML (100MCG/ML) SYRINGE As Ordered ONE (08:18)
[2024-01-11] MEDS ORDERED: ONDANSETRON 4MG 2ML VIAL As Ordered ONE (08:18)
[2024-01-11] MEDS ORDERED: ACETAMINOPHEN 1000MG 100ML IV BAG As Ordered ONE (08:18)
[2024-01-11] MEDS ORDERED: OXYTOCIN 30UNITS IN 0.9% NaCl 500ML IV BAG As Ordered ONE (08:18)
[2024-01-11] MEDS ORDERED: MORPHINE PRES-FREE INJ 10 MG/10 ML VIAL As Ordered ONE (08:18)
[2024-01-11] MEDS ORDERED: KETOROLAC 60MG 2ML VIAL As Ordered ONE (08:18)
[2024-01-11] MEDS ORDERED: METOCLOPRAMIDE INJ 10MG/2ML VIAL As Ordered ONE (08:18)
[2024-01-11] MEDS ORDERED: RHOGAM 300MCG (1500IU) INJ IM SCH (08:40)
[2024-01-11] MEDS ORDERED: PERCOCET 5MG/325MG TAB PO PRN (08:40)
[2024-01-11] MEDS ORDERED: SIMETHICONE 80MG CHEW TAB PO PRN (08:40)
[2024-01-11] MEDS ORDERED: MOM 30ML SUSPENSION UDC PO PRN (08:40)
[2024-01-11] MEDS ORDERED: METHYLERGONOVINE MALEATE 0.2 MG TAB PO PRN (08:40)
[2024-01-11] MEDS ORDERED: CALCIUM CARBONATE 500 MG CHEW U/D PO PRN (08:40)
[2024-01-11] MEDS ORDERED: LR 1,000 ML IV SCH ×2 (08:40→09:10)
[2024-01-11] MEDS: PRENATAL VITAMINS CHEWABLE TABLET PO SCH (09:00)
[2024-01-11] MEDS: DOCUSATE SODIUM 100MG CAPSULE PO SCH (09:00)
[2024-01-11] MEDS: FERROUS SULFATE 325MG TAB PO SCH (09:00)
[2024-01-11] MEDS ORDERED: fentaNYL 100 MCG/2 ML INJECTION IV PRN (09:10)
[2024-01-11] MEDS ORDERED: **NOTE PATIENT COMMENT** MISC XX SCH (09:10)
[2024-01-11] MEDS ORDERED: NALOXONE INJ 0.4MG/1ML VIAL IV PRN ×2 (09:10)
[2024-01-11] MEDS ORDERED: METOCLOPRAMIDE INJ 10MG/2ML VIAL IV PRN (09:10)
[2024-01-11] MEDS ORDERED: MEPERIDINE 25 MG/ML 1ML VIAL IV PRN (09:10)
[2024-01-11] MEDS ORDERED: ONDANSETRON 4MG 2ML VIAL IV PRN (09:10)
[2024-01-11] MEDS ORDERED: oxyCODONE 5MG TAB PO PRN (09:10)
[2024-01-11] MEDS ORDERED: diphenhydrAMINE 50MG/ML VIAL IV PRN (09:10)
[2024-01-11] MEDS: SLF 3 ML SYR IV SCH (09:10)
[2024-01-11] MEDS: OXYTOCIN DRIP 30 UNITS in IV 1 EA IV SCH (09:43)
[2024-01-11] MEDS ORDERED: HYDROMORPHONE HCL 0.5 MG/ 0.5 ML SYRINGE As Ordered ONE (09:44)
[2024-01-11] MEDS: HYDROMORPHONE HCL 0.5 MG/ 0.5 ML SYRINGE IV PRN (09:47)
[2024-01-11] MEDS: KETOROLAC 30 MG/ML 1ML VIAL IV SCH (17:46)
[2024-01-12 02:00] VITALS: BP 112/64; O2SAT 97
[2024-01-12 05:54] VITALS: BP 120/61; O2SAT 96
[2024-01-12 06:33] LABS: MEAN CORPUSCULAR HGB CONC 31.6 g/dl (32.0-36.5); MEAN CORPUSCULAR VOLUME 88.4 fl (80.0-96.0); PLATELET COUNT, AUTOMATED 176 10^3/uL (150-450); RED BLOOD COUNT 2.68 10^6/uL (4.00-5.40); WHITE BLOOD COUNT 10.6 10^3/uL (4.0-10.0)
[2024-01-12 06:47] LABS: HEMOGLOBIN 7.5 g/dl (12.0-15.5)
[2024-01-12 06:48] LABS: HEMATOCRIT 23.7 % (36.0-47.0)
[2024-01-12 10:00] VITALS: BP 139/81; O2SAT 97
[2024-01-12] MEDS: IBUPROFEN 800 MG TAB PO PRN (11:23)
[2024-01-12 14:00] VITALS: BP 131/77; O2SAT 99
[2024-01-12] MEDS: PERCOCET 5MG/325MG TAB PO PRN (16:23)
[2024-01-12 18:00] VITALS: BP 137/73; O2SAT 99
[2024-01-12 22:04] VITALS: BP 139/77; O2SAT 99
[2024-01-13 02:15] VITALS: BP 133/63; O2SAT 98
[2024-01-13 06:04] VITALS: BP 124/56; O2SAT 98
[2024-01-13] MEDS: MEASLES,MUMPS,RUBELLA VACCINE INJ (MMR-II) SC.IMMUN ONE (07:38)
[2024-01-13] MEDS ORDERED: PERCOCET PO (09:57)
[2024-01-13] MEDS ORDERED: IBUP80TA PO (09:57)
[2024-01-13] MEDS ORDERED: COLA100C5 PO (09:57)
[2024-01-13] MEDS: BOOSTRIX VACCINE (TETANUS/DIPHTH/ACEL. PERTUSSIS) 0.5ML SYR IM.IMMUN ONE (10:51)
== END 2024-01-13 11:15 | disposition home or self-care (01) | DRG 773 ==
LOC: M LDI 05:19 → M OBS 10:30
PROVIDERS: ADMIT Obstetrics & Gynecology; ATTEND Obstetrics & Gynecology
PROC: 10D00Z1 Extraction of Products of Conception, Low, Open Approach (ICD-10-PCS; principal; 2024-01-11 07:30)
DX: O14.14 Severe pre-eclampsia complicating childbirth (principal); O34.211 Maternal care for low transverse scar from previous cesarean delivery; Z3A.35 35 weeks gestation of pregnancy; Z37.0 Single live birth

== ENCOUNTER → 2024-02-21 | Outpatient (REF) | payer OTHER ==
[~2024-02-21] MED LIST changes: +COLA100C5 PO; +IBUP80TA PO; +PERCOCET PO
== END ==
LOC: M LAB REF 12:43
PROVIDERS: ATTEND Physician Assistant
DX: S31.109A Unspecified open wound of abdominal wall, unspecified quadrant without penetration into peritoneal cavity, initial encounter (principal); Y93.9 Activity, unspecified; Y92.9 Unspecified place or not applicable

== ENCOUNTER → 2024-03-14 | Outpatient (CLI) | payer OTHER ==
[2024-03-14 17:42] LABS: BASO # 0.1 10^3/uL (0.0-0.2); BASO % 0.9 % (0.0-1.0); EOS # 0.3 10^3/uL (0.0-0.5); EOS % 4.6 % (0.0-3.0); HEMATOCRIT 41.6 % (36.0-47.0); HEMOGLOBIN 13.2 g/dl (12.0-15.5); LYMPH # 2.4 10^3/uL (1.5-5.0); LYMPH % 42.5 % (24.0-44.0); MEAN CORPUSCULAR HEMOGLOBIN 27.2 pg (27.0-33.0); MEAN CORPUSCULAR HGB CONC 31.7 g/dl (32.0-36.5); MEAN CORPUSCULAR VOLUME 85.8 fl (80.0-96.0); MONO # 0.5 10^3/uL (0.0-0.8); MONO % 8.6 % (2.0-8.0); NEUTROPHILS # 2.4 10^3/uL (1.5-8.5); PLATELET COUNT, AUTOMATED 352 10^3/uL (150-450); RED BLOOD COUNT 4.85 10^6/uL (4.00-5.40); WHITE BLOOD COUNT 5.7 10^3/uL (4.0-10.0)
[2024-03-14 18:11] LABS: ALBUMIN 4.1 G/DL (3.2-5.2); ALKALINE PHOSPHATASE 104 U/L (46-116); ALT/SGPT 29 U/L (7.0-40); AST/SGOT 15 U/L (<34); BILIRUBIN,TOTAL 0.4 MG/DL (0.3-1.2); BLOOD UREA NITROGEN 14 MG/DL (9-23); CALCIUM LEVEL 9.6 MG/DL (8.5-10.1); CARBON DIOXIDE LEVEL 29 MMOL/L (20-31); CHLORIDE LEVEL 105 MMOL/L (98-107); CHOLESTEROL LEVEL 245 MG/DL (<200); CHOLESTEROL RISK RATIO 3.83 (<5); CREATININE FOR GFR 0.83 MG/DL (0.55-1.30); GLOMERULAR FILTRATION RATE > 60.0 (>60); GLUCOSE, FASTING 82 MG/DL (60-100); HDL CHOLESTEROL 63.9 MG/DL (>40); LDL CHOLESTEROL 157.7 MG/DL (<100); NON-HDL-C 181.1 MG/DL; POTASSIUM SERUM 4.2 MMOL/L (3.5-5.1); SODIUM LEVEL 140 MMOL/L (136-145); TOTAL PROTEIN 7.5 G/DL (5.7-8.2); TRIGLYCERIDES LEVEL 117 MG/DL (<150)
[2024-03-14 18:20] LABS: HEMOGLOBIN A1c 4.8 % (4.0-6.0)
== END ==
LOC: M WUC 11:59
PROVIDERS: ATTEND Physician Assistant Medical
DX: E66.9 Obesity, unspecified (principal); E28.2 Polycystic ovarian syndrome; Z13.220 Encounter for screening for lipoid disorders; J30.2 Other seasonal allergic rhinitis

== ENCOUNTER → 2025-06-24 | Outpatient (CLI) | payer OTHER ==
[2025-06-24 10:39] LABS: CHOLESTEROL LEVEL 192.0 MG/DL (<200); CHOLESTEROL RISK RATIO 3.68 (<5); LDL CHOLESTEROL 126.7 MG/DL (<100); NON-HDL-C 139.9 MG/DL; TRIGLYCERIDES LEVEL 66.0 MG/DL (<150)
== END ==
LOC: M PLALAB 07:11
PROVIDERS: ATTEND Physician Assistant Medical
DX: Z13.220 Encounter for screening for lipoid disorders (principal)

== ENCOUNTER → 2025-07-02 | Outpatient (CLI) | payer OTHER | LOC: M WHC 10:17 | PROVIDERS: ATTEND Physician Assistant Medical | DX: N63.11 Unspecified lump in the right breast, upper outer quadrant (principal); N64.4 Mastodynia ==